=== PATIENT | female | born 1945 | race Caucasian/White ===

== ENCOUNTER 2019-08-28 00:17 | Inpatient (IN) | payer MEDICARE, MEDICAID ==
[~2019-08-28] VITALS: Ht 154.9 cm; Wt 59.9 kg
[2019-08-28] MEDS ORDERED: BUSP5TAB3 PO (00:51)
[2019-08-28] MEDS ORDERED: AMLO5TAB9 PO (00:51)
[2019-08-28] MEDS ORDERED: DIVA250T PO (00:51)
[2019-08-28] MEDS ORDERED: LACT1TAB20 PO (00:51)
[2019-08-28] MEDS ORDERED: ATOR10TA PO ×2 (00:51)
[2019-08-28] MEDS ORDERED: MULT-225 PO (00:51)
[2019-08-28] MEDS ORDERED: RISP0.253 PO (00:53)
[2019-08-28] MEDS ORDERED: METF-440 PO (00:59)
[2019-08-28] MEDS ORDERED: CALC-20 PO (00:59)
[2019-08-28] MEDS ORDERED: LOSA100T31 PO (00:59)
[2019-08-28] MEDS ORDERED: ASPI-866 PO (00:59)
[2019-08-28] MEDS ORDERED: LIDO30AD10 TD (00:59)
[2019-08-28] MEDS ORDERED: CARB-93 PO (00:59)
[2019-08-28] MEDS ORDERED: CHOL100045 PO (00:59)
[2019-08-28] MEDS ORDERED: BENZ0.5T43 PO (00:59)
[2019-08-28] MEDS ORDERED: ACET-2154 PO (01:03)
[2019-08-28] MEDS ORDERED: LEVO50TA8 PO (01:03)
[2019-08-28] MEDS ORDERED: TRIA60LO7 TOP (01:03)
--- NOTE | 2019-08-28 01:45 | NUR ---
Pt bib private ambulance from [facility] for psychiatric evaluation. Per report, pt resides in a chcf and has been becoming increasingly more anxious/angry with episodes of screaming and yelling day and night. Pt was recently hospitalized at [facility] geriatric psych unit for 3 weeks. Upon arrival, pt is sleeping, easily arousable via verbal and tactile stimuli respirations even and unlabored in no acute distress. Safe environment implemented.
[2019-08-28 01:57] LABS: *BILIRUBIN,URIN NEGATIVE (NEGATIVE); *BLOOD, URINE NEGATIVE (NEGATIVE); *COLOR,URINE YELLOW (YELLOW); *KETONES,URINE NEGATIVE (NEGATIVE); *UROBILINOGEN,URINE 0.2 E.U./dl (NORMAL); LEUKOCYTE ESTERASE ,URINE 1+ (NEGATIVE); NITRITE, URINE NEGATIVE (NEGATIVE); PH,URINE 7.5 (5.0-8.0); UGLUCOSE NEGATIVE (NEGATIVE)
[2019-08-28 02:01] LABS: *CLARITY,URINE HAZY (CLEAR)
[2019-08-28 02:04] LABS: BACTERIA,URINE MANY /HPF (NONE SEEN); SQUAMOUS EPITHELIAL CELL,UR FEW /HPF (NONE SEEN); WBC,URINE 80-100 /HPF (0-3)
[2019-08-28] MEDS ORDERED: TEMA15CA5 PO (02:17)
[2019-08-28] MEDS ORDERED: BISA10SU61 RC (02:17)
[2019-08-28] MEDS ORDERED: ALBU2.5V38 IH (02:17)
[2019-08-28] MEDS ORDERED: NA P133E RC (02:17)
[2019-08-28] MEDS ORDERED: MAGN400O6 PO (02:17)
[2019-08-28] MEDS ORDERED: SENN-18 PO (02:17)
[2019-08-28] MEDS ORDERED: IBUP-1957 PO (02:17)
[2019-08-28] MEDS ORDERED: DIPH25CA83 PO (02:17)
--- NOTE | 2019-08-28 02:35 | NUR ---
Pt is medically cleared by ER MD. Called Garth Marroquin (PET team) for psychiatric evaluation, states he will evaluate patient at 0700. ER MD made aware. Pt remains to be sleeping at this time in no acute distress.
--- NOTE | 2019-08-28 06:50 | NUR ---
Garth Marroquin at bedside for psych evaluation.
--- NOTE | 2019-08-28 07:07 | NUR ---
Pt placed on at 5150 hold for GD at 08/28/19. Safe environment implemented.
--- NOTE | 2019-08-28 07:30 | NUR ---
pt in bed sleeping, breathing even and unlabored. NAD noted. fall precautions implemented, bed low, side rails up x2
--- NOTE | 2019-08-28 07:35 | NUR ---
Patient is sleeping comfortably...
--- NOTE | 2019-08-28 08:20 | NUR ---
REPORT GIVEN TO EARNEST FAYE IN [facility].
[2019-08-28] MEDS ORDERED: BLOOD SUGAR DIAGNOSTIC 1 EACH STRIP VI ONE (09:30)
[2019-08-28] MEDS ORDERED: MAGNESIUM HYDROXIDE 30 ML LIQUID UDC PO PRN (09:30)
[2019-08-28] MEDS ORDERED: MAG HYDROX/AL HYDROX/SIMETH 30 ML LIQUID UDC PO PRN (09:30)
--- NOTE | 2019-08-28 09:30 | NUR ---
Pt received from ER asleep, transferred to bed, no distress. Pt is not answering any questions and not signing any papers. Per hold, pt was agitated, yelling without provocation at her facility. Pt was uncooperative in ER and cussing at staff. Upon face to face evaluation, pt is tired and falls back asleep. Dr. Machado and dr. Ovalles were notified. No next of kin to be notified.
[2019-08-28 10:44] VITALS: BP 154/104
[2019-08-28] MEDS: CARBIDOPA/LEVODOPA 25-100MG TABLET PO SCH ×2 (15:30→21:28)
[2019-08-28] MEDS: DIVALPROEX SPRINKLE 125 MG CAP.SPRINK PO SCH ×2 (15:30→18:17)
[2019-08-28 16:42] VITALS: BP 131/101
[2019-08-28] MEDS ORDERED: ACETAMINOPHEN 325 MG TABLET PO SCH (17:00)
[2019-08-28] MEDS: METFORMIN HCL 500 MG TABLET PO SCH (18:17)
--- NOTE | 2019-08-28 20:00 | NUR ---
Patient received into care, laying in bed, yelling. Patient stopped yelling when nurse asked if she had any pain or discomfort and if she needed anything, which patient said no to all questions. All safety and fall precaution measures are in place. Will continue to monitor throughout shift.
[2019-08-28 20:25] VITALS: BP 152/95
[2019-08-28] MEDS: ATORVASTATIN 10 MG TABLET PO SCH (20:55)
[2019-08-28] MEDS: OLANZAPINE ZYDIS 5 MG TAB.RAPDIS PO SCH (20:56)
[2019-08-28] MEDS: SULFAMETH/TRIMETH 800/160 MG TABLET PO SCH (20:56)
[2019-08-28] MEDS: ALBUTEROL SULFATE 2.5 MG/3 ML NEBU IH SCH (21:32)
[2019-08-29] MEDS: ALBUTEROL SULFATE 2.5 MG/3 ML NEBU IH SCH ×4 (00:32→20:36)
[2019-08-29] MEDS: CARBIDOPA/LEVODOPA 25-100MG TABLET PO SCH ×3 (06:58→21:05)
[2019-08-29] MEDS: LEVOTHYROXINE SODIUM 50 MCG TABLET PO SCH (06:58)
--- NOTE | 2019-08-29 07:01 | NUR ---
Patient slept 5.15h last night with no complaints of pain or discomfort. Patient was compliant with all aspects of care, including medication regimen. All nursing needs were addressed promptly. Safety and fall precaution measures remain in place.
[2019-08-29 07:51] VITALS: BP 169/76
--- NOTE | 2019-08-29 08:00 | NUR ---
Alert, oriented to name, screaming when interacted to. Wheezing noted on expiration, on HHN.
[2019-08-29] MEDS: DIVALPROEX SPRINKLE 125 MG CAP.SPRINK PO SCH ×3 (08:35→16:26)
[2019-08-29] MEDS: ASPIRIN EC 81 MG TABLET.DR PO SCH (08:35)
[2019-08-29] MEDS: METFORMIN HCL 500 MG TABLET PO SCH ×2 (08:35→16:26)
[2019-08-29] MEDS: SULFAMETH/TRIMETH 800/160 MG TABLET PO SCH ×2 (08:35→20:39)
[2019-08-29] MEDS: LIDOCAINE 5% PATCH TD SCH (08:36)
[2019-08-29] MEDS: AMLODIPINE 5 MG TABLET PO SCH (08:36)
[2019-08-29] MEDS: SENNOSIDES 1 TABLET PO SCH (08:36)
[2019-08-29] MEDS ORDERED: MAGNESIUM HYDROXIDE 30 ML LIQUID UDC PO PRN (09:00)
[2019-08-29] MEDS ORDERED: ATORVASTATIN 10 MG TABLET PO SCH (09:00)
[2019-08-29] MEDS ORDERED: FLEET ENEMA 133 ML BOTTLE RC PRN (09:00)
[2019-08-29] MEDS: TRIAMCINOLONE ACET 0.1% CREAM 15 GM TUBE TP SCH (09:00)
[2019-08-29] MEDS ORDERED: BISACODYL 10 MG SUPP.RECT RC PRN (09:00)
[2019-08-29] MEDS ORDERED: ALBUTEROL SULFATE 2.5 MG/3 ML NEBU IH SCH (09:00)
[2019-08-29] MEDS ORDERED: TRIAMCINOLONE ACETONIDE 0.1% 60 ML BOTTLE TOP SCH (09:00)
[2019-08-29] MEDS ORDERED: IBUPROFEN 800 MG TABLET PO PRN (09:00)
[2019-08-29] MEDS ORDERED: Medication Not On Formulary EA (Diphenhydramine Hcl (Benadryl) 25 MG) PO SCH (09:30)
[2019-08-29] MEDS ORDERED: diphenhydrAMINE 25 MG CAP PO PRN (09:30)
[2019-08-29] MEDS ORDERED: Medication Not On Formulary EA (Multivitamins (Multiple Vitamin) 1 EACH) PO PRN (09:30)
[2019-08-29] MEDS: CHOLECALCIFEROL 1,000 UNIT TABLET PO SCH (10:00)
[2019-08-29] MEDS: LOSARTAN POTASSIUM 50 MG TABLET PO SCH (10:01)
[2019-08-29] MEDS: MULTIVITAMINS,THERAPEUTIC TABLET PO SCH (10:01)
--- NOTE | 2019-08-29 11:00 | NUR ---
Pleasant and cooperative with care. Transferred to chair and shower provided.
[2019-08-29] MEDS: CALCIUM CARB/VITAMIN D 600-400 MG TABLET PO SCH (12:30)
--- NOTE | 2019-08-29 13:09 | NUR ---
Initial discharge plan: Pt is a resident of [facility] located at [address] [place] [address]. black off worker spoke with admission coordinator [ [phone]] and confirmed that patient will be allowed back after discharge. black off worker spoke with patient's next of kin, sister Sigrid at [phone], who was agreeable on initial discharge plan.SW will work with the pt, pt family and MD regarding appropriate discharge planning. SW will form a safe and proper discharge plan.
--- NOTE | 2019-08-29 13:10 | NUR ---
Social work spoke with marketing information coordinator [[phone]] at [facility] located at [address] [place] [address], and confirmed that patient will be allowed back to the facility after discharge.
--- NOTE | 2019-08-29 13:11 | NUR ---
child daycare worker spoke with patient's next of kin, sister Sigrid at [phone], who states she will be involved in pts plan of care and was agreeable with pts initial discharge plan to return to [facility].
[2019-08-29 16:06] VITALS: BP 138/47
[2019-08-29] MEDS: ACIDOPHILUS/BULGARICUS CHEW TAB PO SCH (16:26)
[2019-08-29] MEDS ORDERED: Medication Not On Formulary EA (Lactobacillus Acidophilus (Acidophilus) 1 EACH) PO SCH (17:00)
--- NOTE | 2019-08-29 18:45 | NUR ---
Afebrile. Free from fall or injury
[2019-08-29 20:32] VITALS: BP 144/67
[2019-08-29] MEDS: ATORVASTATIN 10 MG TABLET PO SCH (20:39)
[2019-08-29] MEDS: OLANZAPINE ZYDIS 5 MG TAB.RAPDIS PO SCH (20:39)
[2019-08-29] MEDS: ACETAMINOPHEN 325 MG TABLET PO PRN (22:40)
[2019-08-29] MEDS: TEMAZEPAM 7.5 MG CAPSULE PO PRN (22:41)
[2019-08-30] MEDS: ALBUTEROL SULFATE 2.5 MG/3 ML NEBU IH SCH ×4 (01:30→18:32)
--- NOTE | 2019-08-30 05:57 | NUR ---
Patient slept a total of 6.30 hours. Patient has been compliant with medications. Noted patient intermittently screaming last night, pain medicine and sleeping medicine givena and noted patient able to sleep afterwards. Attended all needs. Ensured safety and comfort. No other untoward events noted.
[2019-08-30] MEDS: CARBIDOPA/LEVODOPA 25-100MG TABLET PO SCH ×4 (06:00→21:06)
[2019-08-30] MEDS: LEVOTHYROXINE SODIUM 50 MCG TABLET PO SCH ×2 (06:43→06:54)
[2019-08-30 07:07] LABS: BASOPHILS # (AUTO) 0.1 K/uL (0.0-8.0); BASOPHILS % (AUTO) 1.3 % (0.0-2.0); EOSINOPHILS # (AUTO) 0.2 K/uL (0.0-0.7); EOSINOPHILS % (AUTO) 2.6 % (0.0-7.0); HEMATOCRIT 40.3 % (31.2-41.9); HEMOGLOBIN 12.9 g/dL (10.9-14.3); LYMPHOCYTES # (AUTO) 3.7 K/uL (20.0-40.0); LYMPHOCYTES % (AUTO) 42.5 % (20.5-51.5); MEAN CORPUSCULAR HEMOGLOBIN 27.7 uug (24.7-32.8); MEAN CORPUSCULAR HGB CONC 32 g/dL (32.3-35.6); MEAN CORPUSCULAR VOLUME 86.9 fL (75.5-95.3); MONOCYTES # (AUTO) 0.7 K/uL (2.0-10.0); MONOCYTES % (AUTO) 7.5 % (0.0-11.0); NEUTROPHILS # (AUTO) 4.1 K/uL (1.8-8.9); NEUTROPHILS % (AUTO) 46.1 % (38.5-71.5); PLATELET COUNT (AUTO) 211 K/uL (179-408); RED BLOOD CELL COUNT(AUTO) 4.64 MIL/uL (3.63-4.92); WHITE BLOOD COUNT (AUTO) 8.8 K/uL (3.8-11.8)
[2019-08-30 07:15] LABS: CARBON DIOXIDE 29 mmol/L (21-32); CHLORIDE 105 mmol/L (98-107); CREATININE 1.3 mg/dL (0.6-1.3); GLUCOSE 89 mg/dL (74-106); UREA NITROGEN, BLOOD 14 mg/dL (7-18)
[2019-08-30 07:30] VITALS: BP 154/66
[2019-08-30] MEDS ORDERED: IBUPROFEN 800 MG TABLET PO PRN (08:00)
[2019-08-30] MEDS ORDERED: Medication Not On Formulary EA (Calcium Carbonate/Vitamin D3 (Calcium + D 600 Mg Tablet) PO SCH (09:00)
[2019-08-30] MEDS ORDERED: Medication Not On Formulary EA (Losartan Potassium 100 MG) PO SCH (09:00)
[2019-08-30] MEDS: ACIDOPHILUS/BULGARICUS CHEW TAB PO SCH ×2 (09:06→17:08)
[2019-08-30] MEDS: SULFAMETH/TRIMETH 800/160 MG TABLET PO SCH ×2 (09:06→21:06)
[2019-08-30] MEDS: CALCIUM CARB/VITAMIN D 600-400 MG TABLET PO SCH (09:07)
[2019-08-30] MEDS: DIVALPROEX SPRINKLE 125 MG CAP.SPRINK PO SCH ×3 (09:07→17:02)
[2019-08-30] MEDS: CHOLECALCIFEROL 1,000 UNIT TABLET PO SCH (09:07)
[2019-08-30] MEDS: MULTIVITAMINS,THERAPEUTIC TABLET PO SCH (09:07)
[2019-08-30] MEDS: ASPIRIN EC 81 MG TABLET.DR PO SCH (09:07)
[2019-08-30] MEDS: METFORMIN HCL 500 MG TABLET PO SCH ×2 (09:07→17:08)
[2019-08-30] MEDS: SENNOSIDES 1 TABLET PO SCH (09:07)
[2019-08-30] MEDS: LOSARTAN POTASSIUM 50 MG TABLET PO SCH (09:07)
[2019-08-30] MEDS: LIDOCAINE 5% PATCH TD SCH (09:08)
[2019-08-30] MEDS: TRIAMCINOLONE ACET 0.1% CREAM 15 GM TUBE TP SCH (09:08)
[2019-08-30] MEDS: AMLODIPINE 5 MG TABLET PO SCH (09:08)
--- NOTE | 2019-08-30 10:00 | NUR ---
RECEIVED IN BED ASLEEP EASILY AROUSABLE ON ROUNDS ALERT VERBALLY RESPONDED BUT WITH CONFUSSION AND DISORIENTATION AT THIS TIME TURNED AND REPOSITIONED Q2H NO MOANING OR FACIAL GRIMACING NOTED.ALL NEEDS ANTICIPATED AND SATISFIED COMPLIANT WITH MEDICATIONS AND CARE.
--- NOTE | 2019-08-30 12:05 | NUR ---
PATIENT SEEN AND EXAMINED BY HERMAN GRINDER SET UP OPERATOR UNIVERSAL WITH NO NEW ORDERS AT THIS TIME.
[2019-08-30 15:15] VITALS: BP 132/66
--- NOTE | 2019-08-30 16:23 | NUR ---
DR SOLO HERE SEEN PATIENT WITH NEW ORDER FOR 14 DAYS HOLD AND NOTED.
--- NOTE | 2019-08-30 18:00 | NUR ---
INCONTINENT CARE GIVEN REMEDY PASTE ORDERED FOR PROTECTION TURNED AND REPOSITIONED Q2H HEELS FLOATED MADE COMFORTABLE
[2019-08-30 20:33] VITALS: BP 137/80
[2019-08-30] MEDS: OLANZAPINE ZYDIS 5 MG TAB.RAPDIS PO SCH (21:06)
[2019-08-30] MEDS: ATORVASTATIN 10 MG TABLET PO SCH (21:06)
[2019-08-30] MEDS: Z GUARD REMEDY PASTE 57 GM TUBE TOP SCH (21:07)
[2019-08-31] MEDS: ALBUTEROL SULFATE 2.5 MG/3 ML NEBU IH SCH ×4 (01:30→20:40)
[2019-08-31] MEDS: CARBIDOPA/LEVODOPA 25-100MG TABLET PO SCH ×4 (06:00→21:13)
[2019-08-31] MEDS: LEVOTHYROXINE SODIUM 50 MCG TABLET PO SCH (06:34)
[2019-08-31 07:30] VITALS: BP 140/67
[2019-08-31] MEDS: SENNOSIDES 1 TABLET PO SCH (08:30)
[2019-08-31] MEDS: LIDOCAINE 5% PATCH TD SCH (08:31)
[2019-08-31] MEDS: AMLODIPINE 5 MG TABLET PO SCH (08:31)
[2019-08-31] MEDS: SULFAMETH/TRIMETH 800/160 MG TABLET PO SCH ×2 (08:31→20:41)
[2019-08-31] MEDS: ASPIRIN EC 81 MG TABLET.DR PO SCH (08:31)
[2019-08-31] MEDS: MULTIVITAMINS,THERAPEUTIC TABLET PO SCH (08:31)
[2019-08-31] MEDS: DIVALPROEX SPRINKLE 125 MG CAP.SPRINK PO SCH ×3 (08:31→16:11)
[2019-08-31] MEDS: CHOLECALCIFEROL 1,000 UNIT TABLET PO SCH (08:31)
[2019-08-31] MEDS: METFORMIN HCL 500 MG TABLET PO SCH ×2 (08:31→18:34)
[2019-08-31] MEDS: CALCIUM CARB/VITAMIN D 600-400 MG TABLET PO SCH (08:32)
[2019-08-31] MEDS: LOSARTAN POTASSIUM 50 MG TABLET PO SCH (08:32)
[2019-08-31] MEDS: TRIAMCINOLONE ACET 0.1% CREAM 15 GM TUBE TP SCH (08:33)
[2019-08-31] MEDS: ACIDOPHILUS/BULGARICUS CHEW TAB PO SCH ×2 (08:33→16:11)
[2019-08-31] MEDS: Z GUARD REMEDY PASTE 57 GM TUBE TOP SCH ×2 (08:33→20:43)
[2019-08-31 16:08] VITALS: BP 114/49
--- NOTE | 2019-08-31 19:45 | NUR ---
Patient in bed alert but forgetful, patient had episode of yelling for unknown reason. Patient was ask if she in pain or if she in any discomfort, patient unable to tell. Patient yells and screams during diaper change, explain procedure prior care, cont to reorient.
[2019-08-31] MEDS: ATORVASTATIN 10 MG TABLET PO SCH (20:41)
[2019-08-31] MEDS: OLANZAPINE ZYDIS 5 MG TAB.RAPDIS PO SCH (20:41)
[2019-08-31 20:48] VITALS: BP 148/57
[2019-08-31] MEDS: ACETAMINOPHEN 325 MG TABLET PO PRN (22:46)
[2019-08-31] MEDS: TEMAZEPAM 7.5 MG CAPSULE PO PRN (22:46)
--- NOTE | 2019-08-31 22:46 | NUR ---
PATIENT EYES CLOSE BUT YELLS AND SCREAMS, UNABLE TO SLEEP. PATIENT WAS KEPT CLEAN AND DRY, OFFERED FOOD AND FLUIDS, BUT NOT EFFECTIVE STILL YELLS AND SCREAM, GIVEN SLEEPING AND PAIN MEDS FOR PAIN AND COMFORT
[2019-09-01] MEDS: ALBUTEROL SULFATE 2.5 MG/3 ML NEBU IH SCH ×4 (01:30→19:35)
[2019-09-01] MEDS: LEVOTHYROXINE SODIUM 50 MCG TABLET PO SCH (06:26)
[2019-09-01] MEDS: CARBIDOPA/LEVODOPA 25-100MG TABLET PO SCH ×3 (06:26→21:22)
[2019-09-01 07:30] VITALS: BP 107/54
[2019-09-01] MEDS: CHOLECALCIFEROL 1,000 UNIT TABLET PO SCH (08:44)
[2019-09-01] MEDS: ASPIRIN EC 81 MG TABLET.DR PO SCH (08:44)
[2019-09-01] MEDS: ACIDOPHILUS/BULGARICUS CHEW TAB PO SCH ×2 (08:44→16:08)
[2019-09-01] MEDS: ACETAMINOPHEN 325 MG TABLET PO PRN (08:45)
[2019-09-01] MEDS: METFORMIN HCL 500 MG TABLET PO SCH ×2 (08:45→17:03)
[2019-09-01] MEDS: SENNOSIDES 1 TABLET PO SCH (08:45)
[2019-09-01] MEDS: SULFAMETH/TRIMETH 800/160 MG TABLET PO SCH ×2 (08:45→20:48)
[2019-09-01] MEDS: DIVALPROEX SPRINKLE 125 MG CAP.SPRINK PO SCH ×3 (08:45→16:05)
[2019-09-01] MEDS: CALCIUM CARB/VITAMIN D 600-400 MG TABLET PO SCH (08:46)
[2019-09-01] MEDS: AMLODIPINE 5 MG TABLET PO SCH (08:46)
[2019-09-01] MEDS: MULTIVITAMINS,THERAPEUTIC TABLET PO SCH (08:46)
[2019-09-01] MEDS: LOSARTAN POTASSIUM 50 MG TABLET PO SCH (08:46)
[2019-09-01] MEDS: LIDOCAINE 5% PATCH TD SCH (09:12)
[2019-09-01] MEDS: TRIAMCINOLONE ACET 0.1% CREAM 15 GM TUBE TP SCH (09:13)
[2019-09-01] MEDS: Z GUARD REMEDY PASTE 57 GM TUBE TOP SCH ×2 (09:13→20:48)
[2019-09-01] MEDS: IBUPROFEN 800 MG TABLET PO PRN (12:30)
[2019-09-01 15:19] VITALS: BP 125/69
--- NOTE | 2019-09-01 17:49 | NUR ---
GPS: Nursing Notes: Thought disorder: Patient is awake and responding to her name, poor impulse control, striking out, scratching staff when assisting her with diaper change, impaired judgment, disruptive by shouting, confused, disoriented, resistant with nursing care, incontinent of urine, reoriented and redirected during shift, unable to formulate a viable plan for self care, continue with treatment plan.
[2019-09-01 20:00] VITALS: BP 144/65
[2019-09-01] MEDS: ATORVASTATIN 10 MG TABLET PO SCH (20:48)
[2019-09-01] MEDS: OLANZAPINE ZYDIS 5 MG TAB.RAPDIS PO SCH (20:48)
[2019-09-02] MEDS: ALBUTEROL SULFATE 2.5 MG/3 ML NEBU IH SCH ×4 (01:30→19:31)
[2019-09-02] MEDS: ACETAMINOPHEN 325 MG TABLET PO PRN ×2 (06:09→20:27)
[2019-09-02] MEDS: CARBIDOPA/LEVODOPA 25-100MG TABLET PO SCH ×3 (06:09→21:52)
[2019-09-02] MEDS: LEVOTHYROXINE SODIUM 50 MCG TABLET PO SCH (06:34)
[2019-09-02 07:30] VITALS: BP 116/66
[2019-09-02] MEDS: DIVALPROEX SPRINKLE 125 MG CAP.SPRINK PO SCH ×3 (08:17→17:05)
[2019-09-02] MEDS: MULTIVITAMINS,THERAPEUTIC TABLET PO SCH (08:17)
[2019-09-02] MEDS: CHOLECALCIFEROL 1,000 UNIT TABLET PO SCH (08:17)
[2019-09-02] MEDS: ASPIRIN EC 81 MG TABLET.DR PO SCH (08:17)
[2019-09-02] MEDS: CALCIUM CARB/VITAMIN D 600-400 MG TABLET PO SCH (08:18)
[2019-09-02] MEDS: METFORMIN HCL 500 MG TABLET PO SCH ×2 (08:18→17:05)
[2019-09-02] MEDS: AMLODIPINE 5 MG TABLET PO SCH (08:18)
[2019-09-02] MEDS: LIDOCAINE 5% PATCH TD SCH (08:18)
[2019-09-02] MEDS: SENNOSIDES 1 TABLET PO SCH (08:18)
[2019-09-02] MEDS: LOSARTAN POTASSIUM 50 MG TABLET PO SCH (08:18)
[2019-09-02] MEDS: ACIDOPHILUS/BULGARICUS CHEW TAB PO SCH ×2 (08:18→17:05)
[2019-09-02] MEDS: Z GUARD REMEDY PASTE 57 GM TUBE TOP SCH ×2 (08:18→20:26)
[2019-09-02] MEDS: SULFAMETH/TRIMETH 800/160 MG TABLET PO SCH (08:18)
[2019-09-02] MEDS: TRIAMCINOLONE ACET 0.1% CREAM 15 GM TUBE TP SCH (08:19)
[2019-09-02 15:06] VITALS: BP 103/50
--- NOTE | 2019-09-02 18:07 | NUR ---
Patient tolerated medicines with chocolate pudding. screaming noted while talking. not in distress. no complaint of pain/discomfort noted. Continue pain management if needed. will continue monitor Addendum: 09/02/19 at 1849 by TODD MACIAS RN RN Patient compliance with medication.
[2019-09-02 19:56] VITALS: BP 149/78
[2019-09-02] MEDS: ATORVASTATIN 10 MG TABLET PO SCH (20:26)
[2019-09-02] MEDS: OLANZAPINE ZYDIS 5 MG TAB.RAPDIS PO SCH (20:27)
[2019-09-03] MEDS: CLONAZEPAM 0.5 MG TABLET PO PRN (00:02)
[2019-09-03] MEDS: ALBUTEROL SULFATE 2.5 MG/3 ML NEBU IH SCH ×4 (01:03→20:17)
[2019-09-03] MEDS: CARBIDOPA/LEVODOPA 25-100MG TABLET PO SCH ×3 (05:47→20:37)
[2019-09-03] MEDS: LEVOTHYROXINE SODIUM 50 MCG TABLET PO SCH (06:31)
[2019-09-03 07:47] VITALS: BP 121/55
[2019-09-03] MEDS: METFORMIN HCL 500 MG TABLET PO SCH ×2 (08:49→17:12)
[2019-09-03] MEDS: DIVALPROEX SPRINKLE 125 MG CAP.SPRINK PO SCH ×2 (08:49→16:44)
[2019-09-03] MEDS: LOSARTAN POTASSIUM 50 MG TABLET PO SCH (08:50)
[2019-09-03] MEDS: ASPIRIN EC 81 MG TABLET.DR PO SCH (08:50)
[2019-09-03] MEDS: CHOLECALCIFEROL 1,000 UNIT TABLET PO SCH (08:50)
[2019-09-03] MEDS: AMLODIPINE 5 MG TABLET PO SCH (08:50)
[2019-09-03] MEDS: MULTIVITAMINS,THERAPEUTIC TABLET PO SCH (08:50)
[2019-09-03] MEDS: SENNOSIDES 1 TABLET PO SCH (08:51)
[2019-09-03] MEDS: ACIDOPHILUS/BULGARICUS CHEW TAB PO SCH ×2 (08:51→16:46)
[2019-09-03] MEDS: CALCIUM CARB/VITAMIN D 600-400 MG TABLET PO SCH (08:51)
[2019-09-03] MEDS: Z GUARD REMEDY PASTE 57 GM TUBE TOP SCH ×2 (10:35→20:38)
[2019-09-03] MEDS: LIDOCAINE 5% PATCH TD SCH (10:35)
[2019-09-03] MEDS: TRIAMCINOLONE ACET 0.1% CREAM 15 GM TUBE TP SCH (10:36)
--- NOTE | 2019-09-03 15:45 | NUR ---
FIREARMS REPORT: Vp Respiratory completed and submitted a [employer] firearms report for 5250 grave disability certification. A copy of report has been placed in patient chart.
[2019-09-03 16:33] VITALS: BP 111/55
[2019-09-03] MEDS: ATORVASTATIN 10 MG TABLET PO SCH (20:37)
[2019-09-03] MEDS: OLANZAPINE ZYDIS 5 MG TAB.RAPDIS PO SCH (20:38)
[2019-09-03 21:00] VITALS: BP 120/58
--- NOTE | 2019-09-03 22:00 | NUR ---
received to care, lying in bed. calm and cooperative. compliant with medications and staff direction. as of 2199, she remains asleep. no distress noted. will continue to monitor closely.
[2019-09-04] MEDS: TEMAZEPAM 7.5 MG CAPSULE PO PRN (00:25)
--- NOTE | 2019-09-04 00:25 | NUR ---
PRN restoril given for restlessness/ yelling
[2019-09-04] MEDS: ALBUTEROL SULFATE 2.5 MG/3 ML NEBU IH SCH ×4 (00:30→20:01)
--- NOTE | 2019-09-04 01:00 | NUR ---
appears to be asleep. no distress noted.
[2019-09-04] MEDS: CLONAZEPAM 0.5 MG TABLET PO PRN (02:57)
[2019-09-04] MEDS: ACETAMINOPHEN 325 MG TABLET PO PRN ×2 (02:57→21:02)
--- NOTE | 2019-09-04 02:57 | NUR ---
PRN klonopin and tylenol given for yelling/ restlessness
--- NOTE | 2019-09-04 06:00 | NUR ---
slept 4.5 hours. no distress noted.
[2019-09-04] MEDS: LEVOTHYROXINE SODIUM 50 MCG TABLET PO SCH (06:08)
[2019-09-04] MEDS: CARBIDOPA/LEVODOPA 25-100MG TABLET PO SCH ×3 (06:08→21:02)
[2019-09-04 07:30] VITALS: BP 110/61
[2019-09-04] MEDS: CHOLECALCIFEROL 1,000 UNIT TABLET PO SCH (09:00)
[2019-09-04] MEDS: SENNOSIDES 1 TABLET PO SCH (09:00)
[2019-09-04] MEDS: LOSARTAN POTASSIUM 50 MG TABLET PO SCH (09:00)
[2019-09-04] MEDS: AMLODIPINE 5 MG TABLET PO SCH (09:00)
[2019-09-04] MEDS: MULTIVITAMINS,THERAPEUTIC TABLET PO SCH (09:00)
[2019-09-04] MEDS: METFORMIN HCL 500 MG TABLET PO SCH ×2 (10:10→17:13)
[2019-09-04] MEDS: DIVALPROEX SPRINKLE 125 MG CAP.SPRINK PO SCH ×2 (10:10→17:11)
[2019-09-04] MEDS: ASPIRIN EC 81 MG TABLET.DR PO SCH (10:11)
[2019-09-04] MEDS: LIDOCAINE 5% PATCH TD SCH (10:12)
[2019-09-04] MEDS: Z GUARD REMEDY PASTE 57 GM TUBE TOP SCH ×2 (10:13→21:03)
[2019-09-04] MEDS: CALCIUM CARB/VITAMIN D 600-400 MG TABLET PO SCH (10:30)
[2019-09-04] MEDS: TRIAMCINOLONE ACET 0.1% CREAM 15 GM TUBE TP SCH (10:30)
[2019-09-04] MEDS: ACIDOPHILUS/BULGARICUS CHEW TAB PO SCH ×2 (10:31→17:00)
[2019-09-04 15:55] VITALS: BP 130/72
--- NOTE | 2019-09-04 17:00 | NUR ---
Gps/Orthodontist- remains in bed, needed assist with her hygiene. Routine am meds. crushed administered with pudding.Assisted with meals/feeder. Frequent repositioning, pressure relief, keeping skin clean and dry.
[2019-09-04] MEDS: OLANZAPINE ZYDIS 5 MG TAB.RAPDIS PO SCH (21:02)
[2019-09-04] MEDS: ATORVASTATIN 10 MG TABLET PO SCH (21:02)
[2019-09-04 21:42] VITALS: BP 127/69
--- NOTE | 2019-09-04 22:00 | NUR ---
received to care, lying in bed. calm and cooperative. compliant with medications, food, fluids, and staff direction. some coughing noted, when given fluids. as of 2200, she remains asleep. head of bed elevated, no distress noted. will continue to monitor closely.
[2019-09-05] MEDS: ALBUTEROL SULFATE 2.5 MG/3 ML NEBU IH SCH ×4 (01:30→20:27)
--- NOTE | 2019-09-05 06:30 | NUR ---
slept 8.0 hours. continues to sleep. sitter remains at side.
[2019-09-05] MEDS: CARBIDOPA/LEVODOPA 25-100MG TABLET PO SCH ×3 (06:37→22:12)
[2019-09-05] MEDS: LEVOTHYROXINE SODIUM 50 MCG TABLET PO SCH (06:37)
[2019-09-05 07:21] LABS: BASOPHILS % (AUTO) 0.6 % (0.0-2.0); EOSINOPHILS # (AUTO) 0.3 K/uL (0.0-0.7); EOSINOPHILS % (AUTO) 4.9 % (0.0-7.0); HEMATOCRIT 39.6 % (31.2-41.9); HEMOGLOBIN 12.6 g/dL (10.9-14.3); LYMPHOCYTES # (AUTO) 3.3 K/uL (20.0-40.0); LYMPHOCYTES % (AUTO) 47.4 % (20.5-51.5); MEAN CORPUSCULAR HEMOGLOBIN 27.7 uug (24.7-32.8); MEAN CORPUSCULAR HGB CONC 32 g/dL (32.3-35.6); MEAN CORPUSCULAR VOLUME 87.6 fL (75.5-95.3); MONOCYTES # (AUTO) 0.4 K/uL (2.0-10.0); NEUTROPHILS # (AUTO) 2.9 K/uL (1.8-8.9); NEUTROPHILS % (AUTO) 41.1 % (38.5-71.5); PLATELET COUNT (AUTO) 250 K/uL (179-408); RED BLOOD CELL COUNT(AUTO) 4.53 MIL/uL (3.63-4.92)
[2019-09-05 07:25] LABS: CARBON DIOXIDE 30 mmol/L (21-32); CHLORIDE 108 mmol/L (98-107); CREATININE 1.1 mg/dL (0.6-1.3); GLUCOSE 77 mg/dL (74-106); MAGNESIUM 1.8 mg/dL (1.8-2.4); PHOSPHOROUS 4.6 mg/dL (2.5-4.9); POTASSIUM 4.7 mmol/L (3.5-5.1); UREA NITROGEN, BLOOD 17 mg/dL (7-18)
[2019-09-05 07:30] VITALS: BP 110/73
[2019-09-05 07:37] LABS: THYROID STIMULATING HORMONE 4.221 mIU/mL (0.358-3.740)
[2019-09-05] MEDS: DIVALPROEX SPRINKLE 125 MG CAP.SPRINK PO SCH ×2 (08:44→16:47)
[2019-09-05] MEDS: ACIDOPHILUS/BULGARICUS CHEW TAB PO SCH ×2 (08:44→16:47)
[2019-09-05] MEDS: SENNOSIDES 1 TABLET PO SCH (08:45)
[2019-09-05] MEDS: METFORMIN HCL 500 MG TABLET PO SCH ×2 (08:45→18:04)
[2019-09-05] MEDS: MULTIVITAMINS,THERAPEUTIC TABLET PO SCH (08:45)
[2019-09-05] MEDS: CHOLECALCIFEROL 1,000 UNIT TABLET PO SCH (08:45)
[2019-09-05] MEDS: ASPIRIN EC 81 MG TABLET.DR PO SCH (08:45)
[2019-09-05] MEDS: LIDOCAINE 5% PATCH TD SCH (08:46)
[2019-09-05] MEDS: TRIAMCINOLONE ACET 0.1% CREAM 15 GM TUBE TP SCH (08:47)
[2019-09-05] MEDS: Z GUARD REMEDY PASTE 57 GM TUBE TOP SCH ×2 (08:47→20:36)
[2019-09-05] MEDS: CALCIUM CARB/VITAMIN D 600-400 MG TABLET PO SCH (08:47)
[2019-09-05] MEDS: LOSARTAN POTASSIUM 50 MG TABLET PO SCH (09:00)
[2019-09-05] MEDS: AMLODIPINE 5 MG TABLET PO SCH (09:00)
--- NOTE | 2019-09-05 12:00 | NUR ---
Gps/Pattern Painter- Less yelling noted, but still has occ. bouts of screaming for her needs. Frequent repositioning, offloading heels, keeping skin dry and clean. Routine meds administered with pudding. Slight wheezing noted earlier this am.had resp. tx. as ordered with RBridgette.
[2019-09-05] MEDS: CLONAZEPAM 0.5 MG TABLET PO PRN ×2 (12:13→20:00)
[2019-09-05] MEDS: IBUPROFEN 800 MG TABLET PO PRN (12:13)
[2019-09-05 16:41] VITALS: BP 122/68
[2019-09-05] MEDS: OLANZAPINE ZYDIS 5 MG TAB.RAPDIS PO SCH (16:47)
[2019-09-05] MEDS: ACETAMINOPHEN 325 MG TABLET PO PRN (20:00)
[2019-09-05] MEDS: ATORVASTATIN 10 MG TABLET PO SCH (20:00)
[2019-09-05 20:04] VITALS: BP 126/50
[2019-09-06] MEDS: TEMAZEPAM 7.5 MG CAPSULE PO PRN (00:07)
[2019-09-06] MEDS: ALBUTEROL SULFATE 2.5 MG/3 ML NEBU IH SCH ×4 (00:38→18:59)
[2019-09-06] MEDS: CARBIDOPA/LEVODOPA 25-100MG TABLET PO SCH ×3 (05:59→21:43)
[2019-09-06] MEDS: LEVOTHYROXINE SODIUM 50 MCG TABLET PO SCH (06:32)
[2019-09-06 07:30] VITALS: BP 119/69
[2019-09-06] MEDS: ASPIRIN EC 81 MG TABLET.DR PO SCH (08:16)
[2019-09-06] MEDS: CALCIUM CARB/VITAMIN D 600-400 MG TABLET PO SCH (08:16)
[2019-09-06] MEDS: LOSARTAN POTASSIUM 50 MG TABLET PO SCH (08:16)
[2019-09-06] MEDS: OLANZAPINE ZYDIS 5 MG TAB.RAPDIS PO SCH ×2 (08:17→17:11)
[2019-09-06] MEDS: ACIDOPHILUS/BULGARICUS CHEW TAB PO SCH ×2 (08:17→17:11)
[2019-09-06] MEDS: AMLODIPINE 5 MG TABLET PO SCH (08:17)
[2019-09-06] MEDS: DIVALPROEX SPRINKLE 125 MG CAP.SPRINK PO SCH ×2 (08:17→17:11)
[2019-09-06] MEDS: METFORMIN HCL 500 MG TABLET PO SCH ×2 (08:17→17:11)
[2019-09-06] MEDS: MULTIVITAMINS,THERAPEUTIC TABLET PO SCH (08:17)
[2019-09-06] MEDS: CHOLECALCIFEROL 1,000 UNIT TABLET PO SCH (08:17)
[2019-09-06] MEDS: SENNOSIDES 1 TABLET PO SCH (08:17)
[2019-09-06] MEDS: LIDOCAINE 5% PATCH TD SCH (08:18)
[2019-09-06] MEDS: TRIAMCINOLONE ACET 0.1% CREAM 15 GM TUBE TP SCH (08:18)
[2019-09-06] MEDS: Z GUARD REMEDY PASTE 57 GM TUBE TOP SCH ×2 (08:19→21:14)
[2019-09-06 17:09] VITALS: BP 119/66
[2019-09-06 20:15] VITALS: BP 123/49
[2019-09-06] MEDS: ATORVASTATIN 10 MG TABLET PO SCH (20:21)
[2019-09-06] MEDS: CLONAZEPAM 0.5 MG TABLET PO PRN (20:21)
[2019-09-06] MEDS: IBUPROFEN 800 MG TABLET PO PRN (21:44)
[2019-09-07] MEDS: ALBUTEROL SULFATE 2.5 MG/3 ML NEBU IH SCH ×4 (00:36→20:11)
[2019-09-07] MEDS: CARBIDOPA/LEVODOPA 25-100MG TABLET PO SCH ×4 (06:00→22:07)
[2019-09-07] MEDS: LEVOTHYROXINE SODIUM 50 MCG TABLET PO SCH ×2 (06:36→07:30)
[2019-09-07 08:23] VITALS: BP 142/70
[2019-09-07] MEDS: SENNOSIDES 1 TABLET PO SCH (09:04)
[2019-09-07] MEDS: METFORMIN HCL 500 MG TABLET PO SCH ×2 (09:04→17:26)
[2019-09-07] MEDS: CHOLECALCIFEROL 1,000 UNIT TABLET PO SCH (09:04)
[2019-09-07] MEDS: ASPIRIN EC 81 MG TABLET.DR PO SCH (09:04)
[2019-09-07] MEDS: DIVALPROEX SPRINKLE 125 MG CAP.SPRINK PO SCH ×2 (09:04→17:25)
[2019-09-07] MEDS: LIDOCAINE 5% PATCH TD SCH (09:05)
[2019-09-07] MEDS: LOSARTAN POTASSIUM 50 MG TABLET PO SCH (09:05)
[2019-09-07] MEDS: AMLODIPINE 5 MG TABLET PO SCH (09:05)
[2019-09-07] MEDS: OLANZAPINE ZYDIS 5 MG TAB.RAPDIS PO SCH ×2 (09:05→17:25)
[2019-09-07] MEDS: CALCIUM CARB/VITAMIN D 600-400 MG TABLET PO SCH (09:06)
[2019-09-07] MEDS: ACIDOPHILUS/BULGARICUS CHEW TAB PO SCH ×2 (09:06→17:25)
[2019-09-07] MEDS: TRIAMCINOLONE ACET 0.1% CREAM 15 GM TUBE TP SCH (09:07)
[2019-09-07] MEDS: Z GUARD REMEDY PASTE 57 GM TUBE TOP SCH ×2 (09:08→21:04)
[2019-09-07] MEDS: MULTIVITAMINS,THERAPEUTIC TABLET PO SCH (09:08)
[2019-09-07 18:12] VITALS: BP 122/72
[2019-09-07 20:04] VITALS: BP 144/62
[2019-09-07] MEDS: IBUPROFEN 800 MG TABLET PO PRN (20:52)
[2019-09-07] MEDS: ATORVASTATIN 10 MG TABLET PO SCH (20:52)
[2019-09-08] MEDS: ALBUTEROL SULFATE 2.5 MG/3 ML NEBU IH SCH ×4 (00:58→19:53)
[2019-09-08] MEDS: LEVOTHYROXINE SODIUM 50 MCG TABLET PO SCH (06:35)
[2019-09-08] MEDS: CARBIDOPA/LEVODOPA 25-100MG TABLET PO SCH ×3 (06:35→21:25)
[2019-09-08 07:30] VITALS: BP 129/73
[2019-09-08] MEDS: Z GUARD REMEDY PASTE 57 GM TUBE TOP SCH ×2 (08:44→21:26)
[2019-09-08] MEDS: TRIAMCINOLONE ACET 0.1% CREAM 15 GM TUBE TP SCH (08:44)
[2019-09-08] MEDS: LIDOCAINE 5% PATCH TD SCH (08:45)
[2019-09-08] MEDS: ACIDOPHILUS/BULGARICUS CHEW TAB PO SCH ×2 (08:46→16:30)
[2019-09-08] MEDS: MULTIVITAMINS,THERAPEUTIC TABLET PO SCH (08:46)
[2019-09-08] MEDS: DIVALPROEX SPRINKLE 125 MG CAP.SPRINK PO SCH ×2 (08:46→16:31)
[2019-09-08] MEDS: CALCIUM CARB/VITAMIN D 600-400 MG TABLET PO SCH (08:46)
[2019-09-08] MEDS: ASPIRIN EC 81 MG TABLET.DR PO SCH (08:46)
[2019-09-08] MEDS: LOSARTAN POTASSIUM 50 MG TABLET PO SCH (08:50)
[2019-09-08] MEDS: METFORMIN HCL 500 MG TABLET PO SCH ×2 (08:50→17:11)
[2019-09-08] MEDS: CHOLECALCIFEROL 1,000 UNIT TABLET PO SCH (08:50)
[2019-09-08] MEDS: OLANZAPINE ZYDIS 5 MG TAB.RAPDIS PO SCH ×2 (08:52→16:30)
[2019-09-08] MEDS: SENNOSIDES 1 TABLET PO SCH (08:52)
[2019-09-08] MEDS: AMLODIPINE 5 MG TABLET PO SCH (08:57)
[2019-09-08] MEDS: IBUPROFEN 800 MG TABLET PO PRN ×2 (09:02→20:02)
[2019-09-08 15:22] VITALS: BP 124/63
[2019-09-08 20:00] VITALS: BP 106/64
[2019-09-08] MEDS: ATORVASTATIN 10 MG TABLET PO SCH (20:01)
[2019-09-09] MEDS: ALBUTEROL SULFATE 2.5 MG/3 ML NEBU IH SCH ×3 (01:30→13:31)
[2019-09-09] MEDS: CARBIDOPA/LEVODOPA 25-100MG TABLET PO SCH ×2 (06:24→13:05)
[2019-09-09] MEDS: LEVOTHYROXINE SODIUM 50 MCG TABLET PO SCH (06:40)
[2019-09-09 07:30] VITALS: BP 120/79
[2019-09-09] MEDS: LIDOCAINE 5% PATCH TD SCH (09:09)
[2019-09-09] MEDS: IBUPROFEN 800 MG TABLET PO PRN (09:10)
[2019-09-09] MEDS: TRIAMCINOLONE ACET 0.1% CREAM 15 GM TUBE TP SCH (09:10)
[2019-09-09] MEDS: MULTIVITAMINS,THERAPEUTIC TABLET PO SCH (09:10)
[2019-09-09] MEDS: ASPIRIN EC 81 MG TABLET.DR PO SCH (09:10)
[2019-09-09] MEDS: Z GUARD REMEDY PASTE 57 GM TUBE TOP SCH (09:10)
[2019-09-09] MEDS: ACIDOPHILUS/BULGARICUS CHEW TAB PO SCH ×2 (09:11→16:33)
[2019-09-09] MEDS: SENNOSIDES 1 TABLET PO SCH (09:11)
[2019-09-09] MEDS: CHOLECALCIFEROL 1,000 UNIT TABLET PO SCH (09:11)
[2019-09-09] MEDS: DIVALPROEX SPRINKLE 125 MG CAP.SPRINK PO SCH ×2 (09:11→16:33)
[2019-09-09] MEDS: LOSARTAN POTASSIUM 50 MG TABLET PO SCH (09:12)
[2019-09-09] MEDS: CALCIUM CARB/VITAMIN D 600-400 MG TABLET PO SCH (09:12)
[2019-09-09] MEDS: METFORMIN HCL 500 MG TABLET PO SCH ×2 (09:12→17:20)
[2019-09-09] MEDS: AMLODIPINE 5 MG TABLET PO SCH (09:13)
[2019-09-09] MEDS: OLANZAPINE ZYDIS 5 MG TAB.RAPDIS PO SCH ×2 (09:13→16:33)
--- NOTE | 2019-09-09 09:37 | NUR ---
Discharge Note Patient will be discharged back to [facility] [id number] Editorial Writer spoke with Twyla, House Moving Supervisor, who stated patient is able to return to facility today. Patient hop picker is arranged by the facilitys transportation for today at 5:30pm. Patient is aware and agreeable with discharge plan. Patient is alert and oriented times 3-4 and denies suicidal or homicidal ideation. The patient is unable to provide care for herself currently and is willing to continue her care at the facility. Patient presents with normal mood and congruent affect during the time of her discharge. Patient will follow up with Dr. Penn, Assistant Professor Of Religion and Dr. Moreno, Psychiatrist at [facility]3].
[2019-09-09 15:06] VITALS: BP 116/59
--- NOTE | 2019-09-09 18:05 | NUR ---
GPS: Nursing Notes: discharge Notes: Patient is awake and responding to her name, compliant with her medications, cooperative with nursing care, not striking out, denies any SI/HI, denies any AH/VH, denies any pain or discomfort, denies any SOB, discharge to [facility] at [address] [place] [address] . report given to Claudia - NEYDA supervisor logging, transported via facility's transportation, took all her belongings with her, her sister - Sigrid informed of discharge by staff. Patient will follow up with Dr. Penn, Urban Sociologist and Dr. Moreno, Psychiatrist at [facility].
== END 2019-09-09 18:24 | DRG 885 ==
LOC: ER 00:29 → GPS 08:54
PROVIDERS: ADMIT Psychiatry & Neurology Psychiatry; ATTEND Hospitalist
DX: F25.0 Schizoaffective disorder, bipolar type (principal); F01.50 Vascular dementia, unspecified severity, without behavioral disturbance, psychotic disturbance, mood disturbance, and anxiety; G20 Parkinson's disease; F02.80 Dementia in other diseases classified elsewhere, unspecified severity, without behavioral disturbance, psychotic disturbance, mood disturbance, and anxiety; F41.1 Generalized anxiety disorder; E78.5 Hyperlipidemia, unspecified; J44.9 Chronic obstructive pulmonary disease, unspecified; M17.11 Unilateral primary osteoarthritis, right knee; I10 Essential (primary) hypertension; Z82.49 Family history of ischemic heart disease and other diseases of the circulatory system; Z91.14 Patient's other noncompliance with medication regimen; N30.90 Cystitis, unspecified without hematuria; E11.9 Type 2 diabetes mellitus without complications; E03.9 Hypothyroidism, unspecified; Z79.899 Other long term (current) drug therapy
CPT/HCPCS: 36415; 80164; 83735; 84100; 84443; 85025; 87086; 93005; 94640; 94664; A4663; C1758